=== PATIENT | female | born 1975 | race Caucasian/White ===

== ENCOUNTER → 2023-05-27 14:42 | Outpatient (REF) | payer OTHER, SELFPAY | LOC: WDC 14:42 | PROVIDERS: ATTENDING PHYSICIAN Obstetrics & Gynecology; FAMILY PHYSICIAN Family Medicine | DX: Z12.31 Encounter for screening mammogram for malignant neoplasm of breast (principal) | CPT/HCPCS: 77063; 77067 ==

== ENCOUNTER → 2024-05-29 13:43 | Outpatient (REF) | payer OTHER, SELFPAY | LOC: WDC 13:43 | PROVIDERS: ATTENDING PHYSICIAN Obstetrics & Gynecology; FAMILY PHYSICIAN Family Medicine | DX: Z12.31 Encounter for screening mammogram for malignant neoplasm of breast (principal) | CPT/HCPCS: 77063; 77067 ==

== ENCOUNTER → 2024-07-27 13:49 | Outpatient (REF) | payer OTHER, SELFPAY | LOC: RAD 13:49 | PROVIDERS: ATTENDING PHYSICIAN Physician Assistant Medical; FAMILY PHYSICIAN Family Medicine | DX: R22.41 Localized swelling, mass and lump, right lower limb (principal) | CPT/HCPCS: 76882 ==